=== PATIENT | male | born 1985 | race Two or more races ===

== ENCOUNTER 2019-08-05 07:34 | Outpatient (CLI) | payer MEDICAID, OTHER ==
[2019-08-05 12:31] LABS: BASOPHILS # (AUTO) 0.1 10^3/uL (0.0-0.1); EOSINOPHILS # (AUTO) 0.1 10^3/uL (0.0-0.7); EOSINOPHILS % (AUTO) 2.1 %; HGB - HEMOGLOBIN 15.2 g/dL (14.0-18.0); LYMPHOCYTES % (AUTO) 31.5 %; MEAN CORPUSCULAR HEMOGLOBIN 31.2 pg (27.0-31.0); MEAN CORPUSCULAR HGB CONC 33.6 g/dL (32.0-36.0); MEAN CORPUSCULAR VOLUME 92.8 fL (80.0-94.0); MEAN PLATELET VOLUME 9.9 fL (7.4-11.4); MONOCYTES # (AUTO) 0.5 10^3/uL (0.0-1.0); MONOCYTES % (AUTO) 7.3 %; NEUTROPHILS # (AUTO) 3.6 10^3/uL (1.5-6.6); NEUTROPHILS % (AUTO) 57.9 %; PLT - PLATELET COUNT 281 10^3/uL (130-450); RED BLOOD COUNT 4.87 10^6/uL (4.70-6.10); RED CELL DISTRIBUTION WIDTH 12.4 % (12.0-15.0); WHITE BLOOD COUNT 6.2 x10^3/uL (4.8-10.8)
[2019-08-05 12:52] LABS: ALBUMIN 4.2 g/dL (3.2-5.5); ALBUMIN/GLOBULIN RATIO 1.2 (1.0-2.2); ALKALINE PHOSPHATASE 65 IU/L (42-121); ALT ALANINE AMINOTRANSFERASE 50 IU/L (10-60); AST ASPARTATE AMINOTRANSFERASE 35 IU/L (10-42); BILIRUBIN,TOTAL 0.5 mg/dL (0.2-1.0); BUN - BLOOD UREA NITROGEN 21 mg/dL (6-20); CALCIUM 9.1 mg/dL (8.5-10.3); CARBON DIOXIDE - CO2 23 mmol/L (21-32); CHLORIDE 106 mmol/L (101-111); CHOL/HDL RATIO 4.1 (<5.0); CHOLESTEROL 174 mg/dL; CREATININE 0.9 mg/dL (0.6-1.2); GFR - MDRD 97 (>89); GLUCOSE 95 mg/dL (70-100); HDL CHOLESTEROL 42 mg/dL; LDL CHOLESTEROL,CALCULATED 65 mg/dL; LDL/HDL RATIO 1.5 (<3.6); SODIUM 140 mmol/L (135-145); TOTAL PROTEIN 7.6 g/dL (6.7-8.2); VLDL CHOLESTEROL 67 mg/dL
[2019-08-05 12:54] LABS: HB2 TOTAL 14.7 g/dL; HEMOGLOBIN A1C 0.55 g/dL; HEMOGLOBIN A1C % 5.6 % (4.6-6.2)
[2019-08-05 20:28] LABS: TRICHOMONAS VAGINALIS DNA NEGATIVE (NEGATIVE)
[2019-08-06 12:07] LABS: HEPATITIS C ANTIBODY NON-REACTIVE (NON-REACTIVE)
[2019-08-06 13:24] LABS: HIV AG/AB 4TH GEN NON-REACTIVE (NON-REACTIVE)
[2019-08-07 14:05] LABS: HSV 2 IGG TYPE SPECIFIC AB <0.90 index
== END 2019-08-05 23:59 | disposition home or self-care (01) ==
LOC: LAB.N 07:34
PROVIDERS: ATTEND Family Medicine
DX: Z00.00 Encounter for general adult medical examination without abnormal findings (principal); Z11.3 Encounter for screening for infections with a predominantly sexual mode of transmission
CPT/HCPCS: 36415; 80053; 80061; 81599; 83036; 83721; 84443; 85025; 86695; 86696; 86803; 87389; 87491; 87591; 87661

== ENCOUNTER 2020-03-07 16:01 | Emergency (ER) | payer MEDICAID ==
--- NOTE | 2020-03-07 16:07 | ED Physician Documentation ---
PD HPI OPHTHO - Stated complaint Stated Complaint: OBJECT IN RT EYE - History obtained from History obtained from: Patient - History of Present Illness Timing - onset: Today Timing - duration: Hours (1) Timing - details: Abrupt onset, Still present Location: Right Associated symptoms: Redness, Tearing, FB sensation. No: Decreased vision, Loss of vision Contributing factors: FB (he was cutting drywall, wearing glasses, but there was some breeze and dust blowing around. He felt piece of FB into right eye and it did not blink out. He tried flushing it at home but still feeling FB lateral upper, under lid area.), Wears glasses. No: Wears contacts Similar symptoms before: Has not had sx before Review of Systems Constitutional: denies: Fever, Chills Eyes: reports: Irritation. denies: Loss of vision, Photophobia Nose: denies: Rhinorrhea / runny nose, Congestion Throat: denies: Sore throat Respiratory: denies: Cough PD PAST MEDICAL HISTORY - Past Medical History Past Medical History: No - Present Medications Home Medications: Ambulatory Orders Medication Instructions Recorded Confirmed Erythromycin Base [Erythromycin 1 applic OP QID #3.5 oint...g. 03/07/20 Ophthalmic Ointment] - Allergies Allergies/Adverse Reactions: Allergies Allergy/AdvReac Type Severity Reaction Status Date / Time No Known Drug Allergies Allergy Verified 03/07/20 16:46 PD ED PE NORMAL - Vitals Vital signs reviewed: Yes - General General: Alert and oriented X 3, No acute distress (appears uncomfortable and is holding right eye closed. ), Well developed/nourished - HEENT HEENT: PERRL, EOMI, Other (right eye feels incredibly better after numbing drops. ) PD ED PE EXPANDED - Eyes Eyes: PERRL, EOMI, Right eye, No eyelid FB (everted), Injected conj/sclera (hyperemia of the right eye. He is post irrigation here too by nursing staff after triage. ), Fluorescein uptake (superficial patch of uptake 10 o'clock position c/w prior FB under eyelid. I don't see any FB on eye, including eversion of the lid. ), Anterior chambers clear. No: Conj/sclera FB Results - Vitals Vitals: Vital Signs - 24 hr 09/07/20 16:14 Temperature 37 C Heart Rate 90 Respiratory 16 Rate Blood Pressure 140/77 H O2 Saturation 99 Oxygen O2 Source Room air PD MEDICAL DECISION MAKING - ED course Complexity details: considered differential (feeling better with Alcaine. No FB seen. ), d/w patient Departure - Departure Disposition: 01 Home, Self Care Clinical Impression: Corneal abrasion Qualifiers: Encounter type: initial encounter Laterality: right Qualified Code(s): S05.01XA - Injury of conjunctiva and corneal abrasion without foreign body, right eye, initial encounter Condition: Stable Record reviewed to determine appropriate education?: Yes Instructions: ED Eye Injury Corneal Abrasion Follow-Up: VÍCTOR PATTERSON MD [Primary Care Provider] - Prescriptions: Erythromycin Base [Erythromycin Ophthalmic Ointment] 1 applic OP QID #3.5 oint...g. Comments: I did not see any foreign body in the eye at this time. There is a small abrasion. That is likely the source of your continued discomfort. This should improve over the next day or 2. Rest your eye and avoid wind and such. You can use lubricating eyedrops available [id number]. Sometimes eye ointment helps decrease his symptoms as well and I prescribed the erythromycin eye ointment. This is more for the ointment effect and not the antibiotic per se. Recheck if not improved over the next couple of days. Discharge Date/Time: 03/07/20 17:02
[2020-03-07 16:16] VITALS: BP 140/77
[2020-03-07] MEDS ORDERED: ERYTHROMYCIN OPHTH OINT 1 GM TUBE RIGHTEYE STA (16:27)
== END 2020-03-07 17:02 | disposition home or self-care (01) ==
LOC: ED 16:01
DX: S05.01XA Injury of conjunctiva and corneal abrasion without foreign body, right eye, initial encounter (principal); X58.XXXA Exposure to other specified factors, initial encounter; Y93.H3 Activity, building and construction
CPT/HCPCS: 99282; 99283; J3490

== ENCOUNTER 2021-04-27 08:38 | Outpatient (CLI) | payer BC, MEDICAID | END 2021-04-27 23:59 | disposition home or self-care (01) | LOC: LAB.N 08:38 | PROVIDERS: ATTEND Nurse Practitioner | DX: R05.1 Acute cough (principal); Z20.822 Contact with and (suspected) exposure to COVID-19 ==

== ENCOUNTER 2022-03-27 12:34 | Outpatient (CLI) | payer MEDICAID ==
[2022-03-27 17:52] LABS: BASOPHILS # (AUTO) 0.1 10^3/uL (0.0-0.1); BASOPHILS % (AUTO) 0.7 %; EOSINOPHILS # (AUTO) 0.1 10^3/uL (0.0-0.7); EOSINOPHILS % (AUTO) 0.8 %; HCT - HEMATOCRIT 46.5 % (42.0-52.0); HGB - HEMOGLOBIN 16.3 g/dL (14.0-18.0); LYMPHOCYTES # (AUTO) 2.7 10^3/uL (1.5-3.5); MEAN CORPUSCULAR HEMOGLOBIN 30.8 pg (27.0-31.0); MEAN CORPUSCULAR HGB CONC 35.1 g/dL (32.0-36.0); MEAN CORPUSCULAR VOLUME 87.7 fL (80.0-94.0); MEAN PLATELET VOLUME 9.5 fL (7.4-11.4); MONOCYTES # (AUTO) 0.6 10^3/uL (0.0-1.0); MONOCYTES % (AUTO) 6.5 %; NEUTROPHILS % (AUTO) 63.7 %; PLT - PLATELET COUNT 383 10^3/uL (130-450); RED CELL DISTRIBUTION WIDTH 12.1 % (12.0-15.0); WHITE BLOOD COUNT 9.5 x10^3/uL (4.8-10.8)
[2022-03-27 18:05] LABS: ALBUMIN 4.6 g/dL (3.2-5.5); ALBUMIN/GLOBULIN RATIO 1.3 (1.0-2.2); BILIRUBIN,TOTAL 0.7 mg/dL (0.2-1.0); CALCIUM 9.4 mg/dL (8.5-10.3); CREATININE 0.9 mg/dL (0.6-1.2); POTASSIUM 4.1 mmol/L (3.5-5.0); TOTAL PROTEIN 8.2 g/dL (6.7-8.2)
== END 2022-03-27 12:35 | disposition home or self-care (01) ==
LOC: LAB.N 12:34
PROVIDERS: ATTEND Nurse Practitioner
DX: M62.82 Rhabdomyolysis (principal)
CPT/HCPCS: 36415; 80053; 82550; 85025

== ENCOUNTER 2022-05-29 14:36 | Outpatient (CLI) | payer MEDICAID ==
[2022-05-29 15:35] VITALS: BP 134/82
--- NOTE | 2022-05-29 15:35 | SLEEP CARE CONSULTATION ---
Information from patient questionnaire entered by Ryann Bazzi. I have reviewed and concur with the information entered by Ryann Bazzi. This document represents the service I personally performed and the decisions made by me, Nicci Mchugh ARNP. History of Present Illness Service Date and Time: 05/29/2022 1436 Reason for Visit: New patient Chief Complaint: reports: Unrefreshed sleep, Snoring, Fatigue, Frequent awakenings at night, Other (MUSCLE SPASMS ) Date of Onset: 5YRS Usual bedtime: 10PM Time it takes to fall asleep: 1-3HRS Snores at night: Yes Observed to quit breathing while asleep: Yes Sleeps alone due to snoring: No Number of times waking at night: 6-8 Reasons for waking at night: reports: Choking, Snoring, Pain, Other (NOISE) Toss, Turn, or Twitch while sleeping: Yes Recalls having dreams: No Usually gets out of bed at: 6-7AM Feels refreshed in the morning: No Morning headache: Yes (3-4 times a week; RESOLVES AROUND 9-10) Sleepy or fatigued during the day: Yes Ever fallen asleep while driving: No Takes day naps: No Prior sleep studies: No Additional HPI information: I had the pleasure of seeing EDWARD GONZALEZ today regarding the possibility of him having a sleep disorder. His current complaints are fatigue, frequent night awakenings, snoring, unrefreshed sleep and muscle spasms. He states he was diagnosed with rhabdomyolysis a few months ago. They are not sure why/how he developed it. He has had covid twice in the last year. He is otherwise healthy. He states he does not feel rested in the mornings. His snoring is extremely loud and will wake him up to roll over. His has also witness pauses in breathing when he is sleeping. He states that he has difficulty swallowing all the time. 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 Patient is and lives in [place]. Have you smoked in the past 12 months: No Cigarettes per day (20/pack): 20 Years of smokin Quit date: 2018 Smoking Pack Years: 18.0 Alcohol use: No Caffeine use: Yes Caffeine amount and frequency: 16-20OZ DAILY Family History Family history of sleep disordered breathing: Yes Family Hx Sleep Apnea: Grandparent: Snoring, Sleep apnea - Treated Allergies and Home Medications Known drug allergies: No Drug allergies reviewed: Yes (NKDA) Home medication list reviewed: Yes (no daily medications) Review of Systems Weight gain over past 5 years: 25 Cardiovascular: reports: have to sleep sitting up (sometimes more comfortable). denies: high blood pressure Respiratory: reports: shortness of breath Gastrointestinal: denies: heartburn Neurological: reports: headaches Ear/Nose/Throat: reports: nasal congestion, sinus problems. denies: tonsillectomy, wisdom teeth removed Musculoskeletal: reports: joint pain, neck pain, back pain, joint swelling, muscle pain or cramping, mobility problems Immunologic: reports: allergies to food or environment (grass, bees) Physical Exam Vital signs obtained and entered by: RYANN Wallace MA Blood Pressure: 134/82 (LEFT ARM) Cuff size: regular Heart Rate: 91 O2 Saturation: 96 Height: 6 ft 2 in Weight: 230 lb 6.4 oz Body Mass Index: 29.5 BMI Classification: Overweight Neck circumference: 17 Nostrils: patent to airflow Mouth and throat: narrow oropharynx Soft palate: long Hard palate: normal Uvula: normal Uvula visualization: 100% Mallampati Class I Tongue: enlarged in size with teeth stevens on lateral edges Tonsils: 2+ Chin and jaw: normal size and position Neck: normal w/o lymphadenopathy or thyromegaly Heart: regular rate and rhythm Lungs: clear bilaterally Impression and Plan 1. Suspected Obstructive Sleep Apnea-Hypopnea Syndrome, as suggested by a history of loud and irregular snoring, observed cessation of breath while asleep, gasping or choking in sleep, morning headache, frequent awakening during the night, unrefreshed sleep, and excessive daytime sleepiness. Narrow oropharynx and obesity are common predisposing factors for obstructive sleep apnea-hypopnea syndrome. I recommend proceeding to polysomnography to confirm the diagnosis and to assess severity. If the patient has significant sleep disordered breathing, a manual CPAP titration study will also be performed to find the optimal treatment pressure. I informed the patient of what the sleep studies involve and after some discussion, obtained agreement to proceed. The pathophysiology of obstructive sleep apnea-hypopnea syndrome was discussed with the patient and health risks of cardiovascular and cerebrovascular disease if not treated. Risks of drowsy driving discussed in detail and patient advised to avoid long distance driving and to brisket puller at the first sign of drowsiness. Patient agreed to plan. * Schedule polysomnography * Avoid long distance driving or driving when feeling sleepy. * Avoid alcohol, sedative and muscle relaxant around bedtime. * Attempt to lose weight. * Review instructions provided by trained office staff on how to prepare for the sleep study. * Return for follow-up after sleep study completed. Counseling Topics: Weight loss health impact Visit Type: In Office Time Spent with Patient (minutes): 32 Provider Statement: I spent 100% of the Face to Face Visit with the patient with greater than 50% spent counseling the patient and coordination of care.
== END 2022-05-29 14:37 | disposition home or self-care (01) ==
LOC: SC 14:36
PROVIDERS: ATTEND Nurse Practitioner Family
DX: G47.10 Hypersomnia, unspecified (principal); G47.8 Other sleep disorders; R51.9 Headache, unspecified; R06.81 Apnea, not elsewhere classified; R06.83 Snoring
CPT/HCPCS: 99203; 99212

== ENCOUNTER 2022-06-07 09:08 | Outpatient (CLI) | payer MEDICAID ==
[2022-06-07 12:54] LABS: ALBUMIN 4.4 g/dL (3.2-5.5); ALBUMIN/GLOBULIN RATIO 1.5 (1.0-2.2); BILIRUBIN,TOTAL 0.5 mg/dL (0.2-1.0); CREATININE 0.9 mg/dL (0.6-1.2); POTASSIUM 4.4 mmol/L (3.5-5.0); TOTAL PROTEIN 7.4 g/dL (6.7-8.2)
[2022-06-07 13:06] LABS: CREATININE,URINE 132.9 mg/dL; MICROALBUM/CREATININE RATIO,UR 13.5 ug/mg (<30.0); MICROALBUMIN,URINE 1.8 mg/dL (0-300.0)
== END 2022-06-07 09:09 | disposition home or self-care (01) ==
LOC: LAB.N 09:08
PROVIDERS: ATTEND Nurse Practitioner
DX: M62.82 Rhabdomyolysis (principal)
CPT/HCPCS: 36415; 80053; 82043; 82570

== ENCOUNTER 2022-07-05 08:55 | Outpatient (CLI) | payer MEDICAID | END 2022-07-05 08:56 | disposition home or self-care (01) | LOC: SC 08:55 | PROVIDERS: ATTEND Nurse Practitioner Family | DX: G47.33 Obstructive sleep apnea (adult) (pediatric) (principal); R09.02 Hypoxemia | CPT/HCPCS: 95806 ==

== ENCOUNTER 2022-07-16 09:20 | Outpatient (CLI) | payer MEDICAID ==
[2022-07-16 19:05] VITALS: BP 118/70
--- NOTE | 2022-07-16 19:05 | SLEEP CARE CONSULTATION ---
Information from patient questionnaire entered by Ryann Bazzi. I have reviewed and concur with the information entered by Ryann Bazzi. This document represents the service I personally performed and the decisions made by me, Laura Denson MD, [facility]. History of Present Illness Service Date and Time: 07/16/2022919 Initial [place] Sleepiness Scale score: 6 Current [place] Sleepiness Scale score: 14 (07/16/22) Additional HPI information: Mr. Owens returned for follow up of the home sleep apnea test (HSAT) he had on 07/05/2022. The polysomnography showed mild obstructive sleep apnea-hypopnea, with an AHI of 13.6/hr and geovany SaO2 of 82%. During the study, the patient had 46 apneas (46 obstructive, 0 central, 0 mixed) and 29 hypopneas. The longest episode lasted 89.5 seconds. The respiratory events occurred more frequently d uring supine sleep (supine AHI was 58.3 and non-supine, 9.47). Hypoxemia, mild, with the lowest oxygen saturation of 82 % and 18.5 minutes with SaO2 under 90%. Baseline oxygen saturation was normal (Average oxygen saturation was 94%). The patient was informed of these findings. I explained to him the pathophysiology behind obstructive sleep apnea. We then spent quite a bit of time discussing different treatment options. For mild obstructive sleep apnea, surgery and oral appliance are alternatives to nasal CPAP therapy but in moderate or severe cases, nasal CPAP is the most effective and reliable treatment. Weight loss in an obese individual is strongly recommended. After some discussion, he opted to go with the nasal CPAP therapy. I explained to him how CPAP machine works and what to expect when using the machine. He is encouraged to use CPAP every night especially in the first 2 to 3 nights in order to get used to it. He should call his CPAP supplier or me to discuss any mechanical problem that may occur. If he snores or feels like he is not getting enough air from the machine, he should notify me and I will increase the pressure. Sleep Study - Results Type of Sleep Study: Home sleep study (COMPLETED ON 07/05/22) Allergies and Home Medications Drug allergies reviewed: Yes Home medication list reviewed: Yes Allergy and home medication list: Allergies No Known Drug Allergies Allergy (Verified 03/07/20 16:46) Review of Systems Review of systems same as previous: Yes Physical Exam Vital signs obtained and entered by: RYANN Wallace MA Blood Pressure: 118/70 (LEFT ARM) Cuff size: regular Heart Rate: 82 O2 Saturation: 97 Height: 6 ft 2 in Weight: 228 lb 3.2 oz Body Mass Index: 29.2 BMI Classification: Overweight Impression and Plan IMPRESSION: 1. Obstructive Sleep Apnea-Hypopnea Syndrome, mild, but severe during supine sleep. Possibly, this is the cause of the patients symptoms of unrefreshed sleep and excessive daytime sleepiness. As mentioned above, the patient will be started on an autoCPAP set between 5 and 15 cmH2O. Depending on his response and compliance he may be brought back for an overnight CPAP titration study. PLAN: 1. Prescription made for an autoCPAP, heated humidifier, and related supplies through [employer]. 2. Attempt to lose some weight and avoid alcohol consumption near bedtime. Return for follow up after one month of using the CPAP. Prescriptions: Auto CPAP Follow up with Sleep Care in: 1-2 months Visit Type: In Office Time Spent with Patient (minutes): 15 Provider Statement: I spent 100% of the Face to Face Visit with the patient with greater than 50% spent counseling the patient and coordination of care.
== END 2022-07-16 09:21 | disposition home or self-care (01) ==
LOC: SC 09:20
PROVIDERS: ATTEND Internal Medicine Pulmonary Disease
DX: G47.33 Obstructive sleep apnea (adult) (pediatric) (principal); M62.82 Rhabdomyolysis
CPT/HCPCS: 36415; 80053; 82550; 99212

== ENCOUNTER 2022-07-16 09:52 | Outpatient (CLI) | payer MEDICAID ==
[2022-07-16 12:13] LABS: ALBUMIN 4.4 g/dL (3.2-5.5); ALBUMIN/GLOBULIN RATIO 1.3 (1.0-2.2); BILIRUBIN,TOTAL 0.5 mg/dL (0.2-1.0); CALCIUM 9.4 mg/dL (8.5-10.3); CREATININE 0.9 mg/dL (0.6-1.2); POTASSIUM 4.6 mmol/L (3.5-5.0); TOTAL PROTEIN 7.9 g/dL (6.7-8.2)
== END 2022-07-16 09:53 | disposition home or self-care (01) ==
LOC: LAB.N 09:52
PROVIDERS: ATTEND Nurse Practitioner
DX: M62.82 Rhabdomyolysis (principal)
CPT/HCPCS: 36415; 80053; 82550

== ENCOUNTER 2022-09-07 14:29 | Outpatient (CLI) | payer MEDICAID ==
--- NOTE | 2022-09-07 14:52 | SLEEP CARE CONSULTATION ---
Information from patient questionnaire entered by Ryann Bazzi. I have reviewed and concur with the information entered by Ryann Bazzi. This document represents the service I personally performed and the decisions made by me, Nicci Mchugh ARNP. History of Present Illness Service Date and Time: 09/07/2022 1429 Previous diagnosis: Mild, Obstructive Sleep Apnea-Hypopnea Syndrome AHI: 13.6 (in 2022) Reason for follow up: first compliance Equipment type: CPAP (RESMED Airsense 11, s/u 07/2022) Equipment obtained from: Other ([facility]; getting supplies) Mask style: Full face (hybrid) Backup mask available: No (will keep old mask when replaced) Last cushion change: month or so Prior sleep studies: No HPI additional information: EDWARD GONZALEZ was diagnosed to have mild, AHI 13.6, obstructive sleep apnea- hypopnea syndrome and returned today for CPAP therapy first compliance follow- up. Sleep Study - Results Prior sleep studies: No CPAP Compliance Data - Data Reviewed with Patient Average duration of nightly device use: 4 hours 24 minutes Compliance rate %: 53 (/ days) Current pressure setting (cmH2O): 5-15 (median 6.9, avg 9.1, max 10.1) Average residual AHI: 0.9 Central apnea: 0.0 Obstructive apnea: 0.4 Subjective Missed days of use due to: reports: mask issues, illness (congested) Patient concerns: reports: nasal congestion (when sick), other (sores on face from full face mask, changed to different mask, doing better) Observed to snore while using device: No Current pressure setting perceived as: comfortable On therapy, patient: reports: other (does not feel difference with CPAP; wakes up every morning with pain). denies: drowsiness while driving Initial [place] Sleepiness Scale score: 6 Current [place] Sleepiness Scale score: 10 (09/07/22) Allergies and Home Medications Known drug allergies: No Drug allergies reviewed: Yes Home medication list reviewed: Yes (no changes) Review of Systems Review of systems same as previous: No (fibromyalgia) Physical Exam Vital signs obtained and entered by: RYANN Wallace MA Blood Pressure: 120/78 (LEFT ARM) Cuff size: regular Heart Rate: 96 O2 Saturation: 95 Height: 6 ft 2 in Weight: 231 lb Body Mass Index: 29.6 BMI Classification: Overweight Impression and Plan 1. Obstructive Sleep Apnea-Hypopnea Syndrome, mild, with fair treatment compliance and good apnea control. On CPAP therapy, the patient has not yet felt improvement of sleep or restfulness but has been dealing with lot of physical pain. He wakes up in pain. His doctor is evaluating him for fibromyalgia. I advised him to try to increase use of CPAP. He was sick with lots of nasal congestion and could not wear mask for a time. He is starting to use the mask again. The patients pressure will be changed to autoCPAP 7-10 cmH20 to reflect pressures being used. Patient advised to contact me if pressure change is uncomfortable so that it can be adjusted. Goals for apnea control discussed. He did have issues with sores on his the bridge and sides of his nose with the first full face mask that he tried. He changed to a hybrid full face mask and the sores have resolved. Patient's apnea severity and rationale for treatment to reduce apnea, improve sleep quality and reduce cardiovascular and cerebrovascular events was reviewed. 2. Overweight, unspecified. Currently patients BMI is 29.6. Obesity increases the risk of apnea, CPAP pressure requirements and overall health risks especially cardiovascular and diabetes. Thus patient is advised to lose weight. * Change auto CPAP pressure to 7-10 cmH2O * Notify me if snoring with mask or feeling that the pressure is too much or too little * Attempt to lose weight * Call this office if any problems using CPAP * Return for follow up in 1-2 months, or sooner if concerns arise Counseling Topics: Spare mask, Weight loss health impact Visit Type: In Office Time Spent with Patient (minutes): 20 Provider Statement: I spent 100% of the Face to Face Visit with the patient with greater than 50% spent counseling the patient and coordination of care.
[2022-09-07 14:58] VITALS: BP 120/78
== END 2022-09-07 14:30 | disposition home or self-care (01) ==
LOC: SC 14:29
PROVIDERS: ATTEND Nurse Practitioner Family
DX: G47.33 Obstructive sleep apnea (adult) (pediatric) (principal); E66.3 Overweight; Z68.29 Body mass index [BMI] 29.0-29.9, adult
CPT/HCPCS: 99212; 99213

== ENCOUNTER 2022-10-23 09:24 | Outpatient (CLI) | payer MEDICAID ==
[2022-10-23 10:06] VITALS: BP 122/76
--- NOTE | 2022-10-23 10:06 | SLEEP CARE CONSULTATION ---
Information from patient questionnaire entered by Ryann Bazzi. I have reviewed and concur with the information entered by Ryann Bazzi. This document represents the service I personally performed and the decisions made by me, Nicci Mchugh ARNP. History of Present Illness Service Date and Time: 10/23/2022923 Previous diagnosis: Mild, Obstructive Sleep Apnea-Hypopnea Syndrome AHI: 13.6 (in 2022) Reason for follow up: one month (F/U) Equipment type: CPAP (RESMED Airsense 11, s/u 07/2022) Equipment obtained from: Other ([facility]; getting supplies) Mask style: Full face (hybrid) Backup mask available: Yes (other mask) Last cushion change: 1 month Prior sleep studies: No Year and Where: 2022 [facility] Type of Sleep Study: Home sleep study HPI additional information: EDWARD GONZALEZ was diagnosed to have mild, AHI 13.6, obstructive sleep apnea- hypopnea syndrome and returned today for CPAP therapy one month follow-up. Sleep Study - Results Prior sleep studies: No CPAP Compliance Data - Data Reviewed with Patient Average duration of nightly device use: 4 hours 3 minutes Compliance rate %: 23 (20/30 days used) Current pressure setting (cmH2O): 7-10 Average residual AHI: 1.0 Central apnea: 0.0 Obstructive apnea: 0.1 Average large leak: 29.7 lpm Subjective Missed days of use due to: reports: family emergency (new baby; had 2 surgeries and in hospital), other (not getting a lot of sleep because of baby/ situation) Patient concerns: denies: aerophagia, mask discomfort, air blowing in eyes, mask leak noise, condensation in mask/hose, nasal congestion, dry mouth, nose, throat, epistaxis Observed to snore while using device: No Current pressure setting perceived as: comfortable On therapy, patient: reports: sleeping better, awakening more refreshed, being more awake and alert during the day, more rested overall. denies: drowsiness while driving Initial [place] Sleepiness Scale score: 6 Current [place] Sleepiness Scale score: 9 (10/23/22) Allergies and Home Medications Known drug allergies: No Drug allergies reviewed: Yes Home medication list reviewed: Yes (no changes) Allergy and home medication list: Allergies No Known Drug Allergies Allergy (Verified 10/22/22 14:18) Review of Systems Review of systems same as previous: Yes (no changes) Physical Exam Vital signs obtained and entered by: RYANN Wallace MA Blood Pressure: 122/76 (LEFT ARM) Cuff size: regular Heart Rate: 88 O2 Saturation: 97 Height: 6 ft 2 in Weight: 230 lb 3.2 oz Body Mass Index: 29.5 BMI Classification: Overweight Impression and Plan 1. Obstructive Sleep Apnea-Hypopnea Syndrome, mild, with fair treatment compliance and good apnea control. On CPAP therapy, the patient has better sleep quality and is more rested overall. Patient's delivered a baby boy and then had complications from deliver and 2 subsequent surgeries. He has not been getting much sleep with her being in the hospital and taking care of his new son. He states he puts on his mask even if he only gets a few minutes when he lays down at night. He is committed to using his CPAP. I will have him return in 1-2 months to recheck compliance. Patient's apnea severity and rationale for treatment to reduce apnea, improve sleep quality and reduce cardiovascular and cerebrovascular events was reviewed. 2. Overweight, unspecified. Currently patients BMI is 29.5. Obesity increases the risk of apnea, CPAP pressure requirements and overall health risks especially cardiovascular and diabetes. Thus patient is advised to lose weight. * Continue auto CPAP pressure at 7-10 cmH2O * Notify me if snoring with mask or feeling that the pressure is too much or too little * Attempt to lose weight * Call this office if any problems using CPAP * Return for follow up in 1-2 months, or sooner if concerns arise Counseling Topics: Spare mask, Weight loss health impact Visit Type: In Office Time Spent with Patient (minutes): 20 Provider Statement: I spent 100% of the Face to Face Visit with the patient with greater than 50% spent counseling the patient and coordination of care.
== END 2022-10-23 09:25 | disposition home or self-care (01) ==
LOC: SC 09:24
PROVIDERS: ATTEND Nurse Practitioner Family
DX: G47.33 Obstructive sleep apnea (adult) (pediatric) (principal); E66.3 Overweight; Z68.29 Body mass index [BMI] 29.0-29.9, adult
CPT/HCPCS: 99212; 99213

== ENCOUNTER 2022-12-20 08:33 | Outpatient (CLI) | payer MEDICAID ==
--- NOTE | 2022-12-20 09:19 | SLEEP CARE CONSULTATION ---
Information from patient questionnaire entered by Ryann Bazzi. I have reviewed and concur with the information entered by Ryann Bazzi. This document represents the service I personally performed and the decisions made by me, Nicci Mchugh ARNP. History of Present Illness Service Date and Time: 12/20/2022 0833 Previous diagnosis: Mild, Obstructive Sleep Apnea-Hypopnea Syndrome AHI: 13.6 (in 2022) Reason for follow up: other (2 MONTH F/U) Accompanied by: infant Equipment type: CPAP (RESMED Airsense 11, s/u 07/2022) Equipment obtained from: Other ([facility]; getting supplies) Mask style: Full face (hybrid) Backup mask available: Yes (old mask) Last cushion change: 4 weeks ago Prior sleep studies: No Year and Where: 2022 [facility] Type of Sleep Study: Home sleep study HPI additional information: EDWARD GONZALEZ was diagnosed to have mild, AHI 13.6, obstructive sleep apnea- hypopnea syndrome and returned today for CPAP therapy two month follow-up. Sleep Study - Results Type of Sleep Study: Home sleep study Prior sleep studies: No Year and Where: 2022 [facility] CPAP Compliance Data - Data Reviewed with Patient Average duration of nightly device use: 4 hours 7 minutes Compliance rate %: 50 (49/60 days used) Current pressure setting (cmH2O): 7-10 Average residual AHI: 0.4 Central apnea: 0 Obstructive apnea: 0 Average large leak: 26.7 L/min Subjective Missed days of use due to: reports: other (getting up to take care of new baby) Patient concerns: denies: aerophagia, mask discomfort, air blowing in eyes, mask leak noise, condensation in mask/hose, nasal congestion, dry mouth, nose, throat, epistaxis Observed to snore while using device: No Current pressure setting perceived as: comfortable On therapy, patient: reports: being more awake and alert during the day. denies: drowsiness while driving Initial [place] Sleepiness Scale score: 6 Current [place] Sleepiness Scale score: 4 (12/20/22) Allergies and Home Medications Known drug allergies: No Drug allergies reviewed: Yes Home medication list reviewed: Yes Allergy and home medication list: Allergies No Known Drug Allergies Allergy (Verified 12/19/22 16:02) Review of Systems Review of systems same as previous: No (Fibromyalgia) Physical Exam Vital signs obtained and entered by: RYANN Wallace MA Blood Pressure: 122/74 (RIGHT ARM) Cuff size: regular Heart Rate: 80 O2 Saturation: 97 Height: 6 ft 2 in Weight: 227 lb 9.6 oz Body Mass Index: 29.2 BMI Classification: Overweight Impression and Plan 1. Obstructive Sleep Apnea-Hypopnea Syndrome, mild, with fair treatment compliance and good apnea control. On CPAP therapy, the patient has better sleep quality and is more rested overall. He has been able to use the CPAP more as life gets more settled with home and improving since delivery of baby and surgeries. He is putting his CPAP mask on nearly nightly but because he has to get up with his new baby at night, sometimes his hours in mask are shorter than others. He has also been diagnosed with fibromyalgia and deals with nightly discomfort and pain causing him to sleep restlessly. He is still committed to using his CPAP. Patient's apnea severity and rationale for treatment to reduce apnea, improve sleep quality and reduce cardiovascular and cerebrovascular events was reviewed. 2. Overweight, unspecified. Currently patients BMI is 29.2. Obesity increases the risk of apnea, CPAP pressure requirements and overall health risks especially cardiovascular and diabetes. Thus patient is advised to lose weight. * Continue auto CPAP pressure at 7-10 cmH2O * Notify me if snoring with mask or feeling that the pressure is too much or too little * Attempt to lose weight * Call this office if any problems using CPAP * Return for follow up in 3 months, or sooner if concerns arise Counseling Topics: Spare mask, Weight loss health impact Visit Type: In Office Time Spent with Patient (minutes): 16 Provider Statement: I spent 100% of the Face to Face Visit with the patient with greater than 50% spent counseling the patient and coordination of care.
[2022-12-20 09:23] VITALS: BP 122/74
== END 2022-12-20 08:34 | disposition home or self-care (01) ==
LOC: SC 08:33
PROVIDERS: ATTEND Nurse Practitioner Family
DX: G47.33 Obstructive sleep apnea (adult) (pediatric) (principal); E66.3 Overweight; Z68.29 Body mass index [BMI] 29.0-29.9, adult
CPT/HCPCS: 99212

== ENCOUNTER 2023-05-20 12:15 | Outpatient (CLI) | payer MEDICAID | END 2023-05-20 23:59 | disposition critical access hospital (66) | LOC: EMS 12:15 | DX: S61.210A Laceration without foreign body of right index finger without damage to nail, initial encounter (principal); W27.0XXA Contact with workbench tool, initial encounter; Y92.009 Unspecified place in unspecified non-institutional (private) residence as the place of occurrence of the external cause | CPT/HCPCS: A0425; A0427; A0999 ==

== ENCOUNTER 2023-05-20 12:41 | Emergency (ER) | payer MEDICAID ==
[2023-05-20 12:53] VITALS: O2SAT 97
--- NOTE | 2023-05-20 12:54 | ED Physician Documentation ---
PD HPI UPPER EXT INJURY - Stated complaint Stated Complaint: PARTIAL AMPUTATION -FINGER - Chief complaint Chief Complaint: Laceration - History obtained from History obtained from: Patient - History of Present Illness Location: Right, Finger Type of injury: Laceration Where injury occurred: Home - Additonal information Additional information: 37-year-old male presents with a laceration to the right index finger. The patient was using a table saw and accidentally cut through his index finger and down the middle of his finger. EMS was called, IV was placed and the patient received 50 mcg of fentanyl prior to arrival. On arrival here, he is reporting significant pain in the right index finger, no other new concerns. He is unsure of his last tetanus. PD PAST MEDICAL HISTORY - Past Medical History Past Medical History: No - Past Surgical History Past Surgical History: No - Present Medications Home Medications: Ambulatory Orders Medication Instructions Recorded Confirmed HYDROcod/ACETAM 5/325 [[place] 5/325] 1 - 2 tablet PO Q6H PRN #10 tablet 05/20/23 cephALEXin [Keflex] 500 mg PO Q6H #28 cap 05/20/23 - Allergies Allergies/Adverse Reactions: Allergies Allergy/AdvReac Type Severity Reaction Status Date / Time bee venom protein (honey bee) Allergy Anaphylaxis Verified 05/20/23 12:45 - Social History Does the pt smoke?: No Smoking Status: Never smoker Does the pt drink ETOH?: No Does the pt have substance abuse?: No - POLST Patient has POLST: No PD ED PE NORMAL - Vitals Vital signs reviewed: Yes - General General: Alert and oriented X 3, No acute distress, Well developed/nourished - HEENT HEENT: Atraumatic, Moist mucous membranes - Derm Derm: Normal color, Warm and dry, Other (There is a laceration right index finger: 1cm volar tip of finger up and around through mid fingernail and down the middle of the dorsal surface of distal phalanx. approx 4cm total. ) - Extremities Extremities: Other (Laceration of right index finger through the tip of the finger and the nail. He has a normal sensation and is able to move the finger flex and extend.) - Neuro Neuro: Alert and oriented X 3 Eye Opening: Spontaneous Motor: Obeys Commands Verbal: Oriented GCS Score: 15 - Psych Psych: Normal mood, Normal affect Results - Vitals Vitals: Vital Signs - 24 hr 05/20/23 05/20/23 12:45 14:08 Temperature 36.5 C 36.7 C Heart Rate 70 70 Respiratory 16 18 Rate Blood Pressure 131/87 H 113/76 O2 Saturation 97 97 Oxygen O2 Source Room air - Rads (name of study) No standard instances Relevant Findings:: Final report received, See rad report Procedures - Laceration (location) Finger right Length in cm: 4 (through fingernail) Wound type: Linear, Into subcut fat, Exposure of bone Neurovascular status: Sensory intact, Motor intact, Vascular intact Tendon involvement: Tendon intact Anesthesia: Lidocaine 1% Wound preparation: Betadine, Irrigated copiously NS Deep layer closure: size #-0 - enter number (4), # sutures - enter number (3) Skin layer closure: Nylon, Sutures - enter # (8) Other: Patient tolerated well, No complications, Neurovascular intact, Dressing applied, Tetanus booster given PD Medical Decision Making - ED course Complexity details: reviewed results, re-evaluated patient, considered differential, d/w patient ED course: 37-year-old male presents with right finger injury as described in HPI. He has a laceration through the tip of the finger down through the fingernail and to the distal part of the right index finger. On arrival here, patient anxious however bleeding controlled, dressing removed and revealed a suspected open fracture. An x-ray was obtained which does show fracture of the distal phalanx as described above. After informed verbal consent obtained, we did digitally block the finger and it was cleaned thoroughly by the nurse. I then attempted to repair the wound. It I did have to remove half of the fingernail which had been partially avulsed, the other half remained in place. I repaired the nailbed with 3 #4.0 Vicryl sutures to the nailbed remains partially avulsed. I then completed the laceration repair with a total of 8 number four-point 0 nylon sutures. I did not visualize any tendon injury and the patient had good sensation and range of motion of the finger. He was given updated Tdap. A dressing was applied and the patient will be discharged home on Keflex. He is to follow-up with orthopedic surgery on outpatient basis to monitor, he was advised he may return precautions if there are any signs of infection. He can have the sutures removed in 10 to 14 days via PCP. Departure - Departure Disposition: 01 Home, Self Care Clinical Impression: Fracture, finger, distal phalanx, open Qualifiers: Encounter type: initial encounter Finger: index finger Fracture alignment: displaced Laterality: right Qualified Code(s): S62.630B - Displaced fracture of distal phalanx of right index finger, initial encounter for open fracture Finger laceration Qualifiers: Encounter type: initial encounter Finger: index finger Damage to nail status: with damage Foreign body presence: without foreign body Laterality: right Qualified Code(s): S61.310A - Laceration without foreign body of right index finger with damage to nail, initial encounter Condition: Good Instructions: ED Fx Finger Open Follow-Up: Donald Delacruz MD [Provider Admit Priv/Credential] - Prescriptions: cephALEXin [Keflex] 500 mg PO Q6H #28 cap HYDROcod/ACETAM 5/325 [[place] 5/325] 1 - 2 tablet PO Q6H PRN #10 tablet PRN Reason: Pain Comments: You sustained an open fracture with a laceration through your fingernail and into the finger. The distal (tip) of the finger is broken but this often heals on its own without difficulty. We repaired the tissue as best as possible in the ER though you will likely have scarring and some of the tissue is not viable and will slough off and the wound will heal from the bottom up. There are some areas that I could not stitch together and they will need to heal from the bottom up as well. You can leave this dressing on for 2-3 days, and then run it under clean water to help with removal. After that, you can use antibiotic ointment (from the store) and apply a bandaid or gauze dressing over the area. Use extra gauze to make a bulky dressing to help protect the tip of the finger that is broken. I have placed you on antibiotics for this open fracture to reduce the chance of infection. Please monitor the site regularly to ensure that you do not have redness or increased swelling. If you have increased redness/swelling/purulent drainage or if you were to have worsening symptoms, please return to the ER. Otherwise you can follow-up with your primary doctor in around 10 days to have the stitches removed and follow-up with the orthopedic surgeon for the fracture. I have given you a short course of narcotic pain medication. Use this only if Tylenol and ibuprofen are not sufficient. I am prescribing a short course of narcotic pain medication for you. These are potentially dangerous and addictive medications that should be used carefully. These medications may constipate you. Take an ydps-qme-ctithva stool softener (docusate) twice daily with plenty of water while taking these medications. If you go 24 hours without a bowel movement, take [id number]-[id number] miralax, per package instructions. Do not drink or drive while taking these medications. If you received narcotic or sedating medications while in the emergency department, do not drive for 24 hours. Store this medication in a safe, secure place and out of reach of children. It is a violation of federal law to give or sell this medication to another person or to use in a manner other than prescribed. The ED will not refill narcotic prescriptions, including prescriptions lost or stolen. To dispose of unwanted medications: 1. [facility] provides a drop box for medication in pill form only (no liquids) 8:00 am to 4:30 p.m. Saturday-Saturday in the lobby of the [facility], [address] [place] [address]. Empty pills into ziplock bag before disposal. Call [phone] for information. 2.[employer] is a free service available to all [facility] residents. Go to [email or web address] Note that many narcotic pain relievers also contain Tylenol/acetaminophen. Please ensure that your total dose of acetaminophen from all sources does not exceed 3 g (3000 mg) per day. Forms: PCP List Discharge Date/Time: 05/20/23 14:12
[2023-05-20] MEDS ORDERED: HYDROmorphone 1 MG/ML CARPUJECT IVP STA (12:57)
[2023-05-20] MEDS ORDERED: BUFFERED LIDOCAINE 10 ML SYRINGE SUBQ STA (12:57)
[2023-05-20] MEDS ORDERED: TETANUS/DIPHTHERIA/PERTUSSIS 0.5 ML SYRINGE IM ONE (13:03)
--- NOTE | 2023-05-20 13:15 | XRAY Report ---
PROCEDURE: Finger(s) RT INDICATIONS: cut w/ saw TECHNIQUE: AP hand, 2 views of the second finger(s) acquired. COMPARISON: None. FINDINGS: Bones: Comminuted fractures involving second distal phalangeal shaft and second distal phalangeal tu ft is seen with slight displacement at fracture site. No suspicious bony lesions. Soft tissues: Soft tissue laceration over radial and distal portion of second finger is seen. No tone picious soft tissue calcifications or masses. No radiopaque foreign bodies. IMPRESSION: Laceration involving radial and distal portion of second finger with slightly displaced and comminute d fracture involving second distal phalanx as above. No radiopaque foreign bodies. Reviewed by: Alex Liriano MD on 05/20/2023 1:14 PM PST Approved by: Alex Liriano MD on 05/20/2023 1:14 PM PST Station ID: [id number]
[2023-05-20 14:21] VITALS: BP 113/76
== END 2023-05-20 14:12 | disposition home or self-care (01) ==
LOC: ED 12:41
DX: S61.310A Laceration without foreign body of right index finger with damage to nail, initial encounter (principal); S62.630B Displaced fracture of distal phalanx of right index finger, initial encounter for open fracture; W27.0XXA Contact with workbench tool, initial encounter
CPT/HCPCS: 13132; 73140; 90471; 90715; 96374; 99283; 99284; J1170

== ENCOUNTER 2023-05-27 08:00 | Outpatient (CLI) | payer MEDICAID ==
--- NOTE | 2023-05-27 16:44 | XRAY Report ---
PROCEDURE: Finger(s) RT INDICATIONS: RIGHT INDEX FINGER LACERATION/FRACTURE TECHNIQUE: AP hand, 2 views of the second finger(s) acquired. COMPARISON: 06/19/2023. FINDINGS: Bones: Acute comminuted and slightly displaced fracture involving radial aspect of second distal pha langeal shaft and tuft with dorsal and laterally displaced fractured fragments not significantly collado ged from prior study. No new fracture or dislocation. No suspicious bony lesions. Soft tissues: No suspicious soft tissue calcifications or masses. IMPRESSION: Comminuted slightly displaced right distal phalangeal fracture with stable finger alignment. No new f racture or dislocation. Reviewed by: Alex Liriano MD on 05/27/2023 4:43 PM PST Approved by: Alex Liriano MD on 05/27/2023 4:43 PM PST Station ID: [id number]
== END 2023-05-27 23:59 | disposition home or self-care (01) ==
LOC: DI.WOS 08:00
PROVIDERS: ATTEND Orthopaedic Surgery
DX: S62.630D Displaced fracture of distal phalanx of right index finger, subsequent encounter for fracture with routine healing (principal)

== ENCOUNTER 2023-08-08 07:45 | Outpatient (CLI) | payer MEDICAID ==
[2023-08-08 12:36] LABS: BASOPHILS # (AUTO) 0.1 10^3/uL (0.0-0.1); BASOPHILS % (AUTO) 1.2 %; EOSINOPHILS # (AUTO) 0.1 10^3/uL (0.0-0.7); EOSINOPHILS % (AUTO) 2.5 %; HCT - HEMATOCRIT 46.2 % (42.0-52.0); HGB - HEMOGLOBIN 15.4 g/dL (14.0-18.0); LYMPHOCYTES # (AUTO) 2.1 10^3/uL (1.5-3.5); LYMPHOCYTES % (AUTO) 36.5 %; MEAN CORPUSCULAR HEMOGLOBIN 29.6 pg (27.0-31.0); MEAN CORPUSCULAR HGB CONC 33.3 g/dL (32.0-36.0); MEAN CORPUSCULAR VOLUME 88.7 fL (80.0-94.0); MEAN PLATELET VOLUME 9.8 fL (7.4-11.4); MONOCYTES # (AUTO) 0.5 10^3/uL (0.0-1.0); MONOCYTES % (AUTO) 8.1 %; NEUTROPHILS # (AUTO) 2.9 10^3/uL (1.5-6.6); NEUTROPHILS % (AUTO) 51.5 %; PLT - PLATELET COUNT 321 10^3/uL (130-450); RED BLOOD COUNT 5.21 10^6/uL (4.70-6.10); RED CELL DISTRIBUTION WIDTH 11.9 % (12.0-15.0); WHITE BLOOD COUNT 5.7 x10^3/uL (4.8-10.8)
[2023-08-08 12:48] LABS: ESTIMATED AVERAGE GLUCOSE 111 mg/dL (70-100); HEMOGLOBIN A1c% 5.5 % (4.27-6.07)
[2023-08-08 12:56] LABS: ALBUMIN 4.5 g/dL (3.2-5.5); ALBUMIN/GLOBULIN RATIO 1.6 (1.0-2.2); ALKALINE PHOSPHATASE 89 IU/L (42-121); ALT ALANINE AMINOTRANSFERASE 38 IU/L (10-60); AST ASPARTATE AMINOTRANSFERASE 23 IU/L (10-42); BILIRUBIN,TOTAL 0.5 mg/dL (0.2-1.0); BUN - BLOOD UREA NITROGEN 19 mg/dL (6-20); CALCIUM 9.3 mg/dL (8.5-10.3); CARBON DIOXIDE - CO2 27 mmol/L (21-32); CHLORIDE 102 mmol/L (101-111); CK- CREATINE KINASE 306 IU/L (30-223); CRP - C-REACTIVE PROTEIN < 0.5 mg/dL (<0.5); GFR - MDRD 84 (>89); GLUCOSE 94 mg/dL (74-104); POTASSIUM 4.2 mmol/L (3.5-4.5); SODIUM 135 mmol/L (135-145); TOTAL PROTEIN 7.4 g/dL (6.4-8.9); URIC ACID 7.2 mg/dL (4.4-7.6)
[2023-08-08 13:02] LABS: THYROID STIMULATING HORMONE 2.44 uIU/mL (0.34-5.60)
[2023-08-08 13:57] LABS: RHEUMATOID FACTOR NEGATIVE (Negative)
[2023-08-10 16:08] LABS: ANTI-DNA (DS) AB QN <1 IU/mL (0-9)
[2023-08-10 18:07] LABS: CYCLIC CITRULLINATED PEP IGG/A 7 units (0-19)
[2023-08-12 17:08] LABS: ANTINUCLEAR ANTIBODIES IFA Negative (.)
== END 2023-08-08 07:46 | disposition home or self-care (01) ==
LOC: LAB.N 07:45
PROVIDERS: ATTEND Nurse Practitioner
DX: M35.3 Polymyalgia rheumatica (principal); R73.9 Hyperglycemia, unspecified; R53.83 Other fatigue; M25.50 Pain in unspecified joint; M62.81 Muscle weakness (generalized)
CPT/HCPCS: 36415; 80053; 82550; 83036; 83615; 84443; 84550; 85025; 85651; 86038; 86140; 86200; 86225; 86430